=== PATIENT | male | born 1975 | race Caucasian/White ===

== ENCOUNTER 2021-06-10 18:03 | Emergency (ER) | payer OTHER ==
[~2021-06-10] VITALS: Ht 180.3 cm; Wt 93.4 kg
[2021-06-10 18:03] VITALS: BP 143/73
[2021-06-10] MEDS ORDERED: DERMABOND TOPICAL SKIN ADHESIVE TOP ONE (21:40)
[2021-06-10] MEDS ORDERED: CEPH250T PO (22:46)
[2021-06-10] MEDS ORDERED: CEPHALEXIN 250MG CAPSULE PO ONE (22:50)
== END 2021-06-10 22:56 | disposition home or self-care (01) ==
LOC: M ED 18:03
DX: S61.012A Laceration without foreign body of left thumb without damage to nail, initial encounter (principal); W27.4XXA Contact with kitchen utensil, initial encounter; Y92.9 Unspecified place or not applicable; Y93.G1 Activity, food preparation and clean up; Y99.9 Unspecified external cause status; F17.200 Nicotine dependence, unspecified, uncomplicated

== ENCOUNTER → 2024-05-01 | Outpatient (CLI) | payer OTHER ==
[~2024-05-01] MED LIST: CEPH250T PO
== END ==
LOC: M WUC 11:41
PROVIDERS: ATTEND Registered Nurse
DX: J06.9 Acute upper respiratory infection, unspecified (principal)